=== PATIENT | female | born 1995 | race Asian ===

== ENCOUNTER 2017-06-20 12:09 | Emergency (ER) | payer OTHER ==
--- NOTE | 2017-06-20 13:55 | RAD ---
INDICATION: Right forearm injury. TECHNIQUE: 2 views of the right forearm were obtained. FINDINGS: The bones are in normal alignment. No fracture is seen. IMPRESSION: NO EVIDENCE FOR FRACTURE.
--- NOTE | 2017-06-20 13:58 | RAD ---
INDICATION: Right wrist injury. TECHNIQUE: 3 views of the right wrist were obtained. FINDINGS: The bones are in normal alignment. No fracture is seen. Joint spaces appear maintained. IMPRESSION: NO EVIDENCE FOR FRACTURE, IF THE PATIENT'S SYMPTOMS PERSIST RECOMMEND FOLLOW-UP IMAGING.
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
[2017-06-20 14:31] VITALS: BP 95/75
== END 2017-06-20 14:31 | disposition home or self-care (01) ==
LOC: ED 12:09
DX: S60.221A Contusion of right hand, initial encounter (principal); S63.501A Unspecified sprain of right wrist, initial encounter; W50.0XXA Accidental hit or strike by another person, initial encounter; Y92.9 Unspecified place or not applicable; M79.641 Pain in right hand
CPT/HCPCS: 99282